=== PATIENT | male | born 1985 | race Asian ===

== ENCOUNTER 2016-10-31 08:06 | Emergency (ER) | payer BC ==
[~2016-10-31] VITALS: Ht 170.2 cm; Wt 75.0 kg
[2016-10-31 08:17] VITALS: TEMP 36.6; Ht 170.2 cm; Wt 75.0 kg
[2016-10-31] MEDS ORDERED: FIBER PO (08:28)
[2016-10-31] MEDS ORDERED: SODIUM CHLORIDE 0.9% 1000ML 1,000 ML IV STA (08:30)
[2016-10-31] MEDS ORDERED: ONDANSETRON INJ 2 MG/ML 2 ML VIAL IV STA (08:42)
[2016-10-31] MEDS ORDERED: KETOROLAC TROMETHAMINE 30 MG/ML VIAL IV STA (08:42)
[2016-10-31] MEDS ORDERED: MoRPHine SULFATE 4 MG/ML 1 ML CARP\\VIAL IV STA (08:42)
[2016-10-31 08:46] LABS: BASO % 0.3 %; BASO ABS # 0.02 K/uL (0-0.2); COMPLETE YES; EOS % 0.8 %; IG% 0.2 %; LYMPH % 43.6 %; LYMPH ABS # 2.68 K/uL (1.2-3.4); MEAN CELL VOLUME 87.4 fL (80-100); MEAN CORPUSCULAR HEMOGLOBIN 29.7 pg (25-34); MEAN PLATELET VOLUME 10.6 fL (7.4-10.4); MONO % 5.7 %; NEUT % 49.4 %; PLATELET COUNT 198 K/uL (130-400); RED BLOOD COUNT 5.15 M/uL (4.7-6.1); WHITE BLOOD COUNT 6.14 K/uL (4.8-10.8)
[2016-10-31 08:54] LABS: BUN/CREATININE RATIO 15.9 (10-20); CALCIUM 9.2 mg/dl (8.5-10.1); CREATININE 0.92 mg/dl (0.60-1.40); POTASSIUM 3.6 mmol/L (3.5-5.1)
--- NOTE | 2016-10-31 09:41 | DIAGNOSTIC IMAGING REPORT ---
CT SCAN OF THE ABDOMEN AND PELVIS WITHOUT IV CONTRAST CLINICAL HISTORY: Left lower quadrant abdominal pain. COMPARISON STUDY: No priors. TECHNIQUE: CT scan of the abdomen and pelvis is performed from the lung bases to the proximal femora. Images are reviewed in the axial, sagittal, and coronal planes. IV contrast was not administered for this examination as per the front clinician. Automated dose control exposure was utilized. CT DOSE: 436.18 mGy.cm FINDINGS: Lung bases: The heart is normal in size and without pericardial effusion. There is mild bibasilar atelectasis. The lung bases otherwise are clear. Liver: The unenhanced liver is normal in size, contour, and attenuation. There are several calcified hepatic granulomas. Scattered subcentimeter hepatic hypodensities likely represent cysts but are too small for definitive characterization. There is no intrahepatic biliary ductal dilatation. Gallbladder: Unremarkable. Spleen: Normal in size and attenuation. Pancreas: Unremarkable. Adrenal glands: Unremarkable. Kidneys: The unenhanced kidneys are normal in size. There is a 4 mm obstructing calculus at the left vesicoureteral junction seen on image #[id number]. This causes mild left-sided hydroureteronephrosis. There is mild left-sided perinephric stranding. An additional punctate nonobstructing calculus is seen in the left lower pole. No right renal calculi are identified and there is no right-sided hydronephrosis. There is no evidence of contour deforming renal mass lesion. Abdominal vasculature: The abdominal aorta is normal in course and caliber. Bowel: The small bowel and colon are normal in course and caliber. The appendix is well-visualized and normal. Peritoneum: There is no intraperitoneal free air or abdominal ascites. Lymphadenopathy: None. Pelvic viscera: The bladder, prostate, and seminal vesicles are normal as imaged. Skeletal structures: No lytic or blastic lesions are seen. IMPRESSION: 1. There is a 4 mm obstructing calculus at the left vesicoureteral junction. This causes mild left hydroureteronephrosis. 2. There is an additional punctate nonobstructing calculus in the left lower pole. Electronically signed by: Bishop Ramos M.D. 10/31/2016 9:40 AM Dictated Date/Time: 10/31/2016 9:32 AM
[2016-10-31 09:51] LABS: URINE APPEARANCE CLEAR (CLEAR); URINE BILIRUBIN NEG (NEG); URINE COLOR YELLOW; URINE NITRITE NEG (NEG); URINE PH 5.5 (4.5-7.5); URINE SPECIFIC GRAVITY 1.016 (1.000-1.030); UROBILINOGEN NEG (NEG)
[2016-10-31] MEDS ORDERED: OXYC1TAB3 PO (10:07)
[2016-10-31 10:14] LABS: MANUAL MICROSCOPIC REQUIRED? NO; REVIEW REQ? NO
[2016-10-31] MEDS: MoRPHine SULFATE 4 MG/ML 1 ML CARP\\VIAL IV PRN ×2 (10:14→11:03)
[2016-10-31 10:15] VITALS: O2SAT 100
[2016-10-31 11:04] VITALS: BP 115/68; PULSE 70
--- NOTE | 2016-10-31 16:42 | EMERGENCY ROOM VISIT NOTE ---
History First contact with patient: 08:25 Chief Complaint: ABDOMINAL PAIN Stated Complaint: LOWER LEFT ABD PAIN Nursing Triage Summary: pt here with llq abd pain that started at 0300 this am. pt states pain is constant. denies any n/v/d or constipation. no hx of abd problems History of Present Illness The patient is a 31 year old male who presents to the Emergency Room with complaints of severe left abdominal and flank pain that started at 3 AM this morning. The patient reports that the pain is mostly constant. He denies any nausea, vomiting, diarrhea or constipation. He also currently denies any urinary symptoms such as inability to urinate, hematuria, dysuria, frequency or urgency. He has had no recent upper respiratory infections, shortness of breath or chest pain. The patient has no alleviating or aggravating factors for his pain, and currently rates his discomfort a 7 out of 10. Review of Systems HEENT: Denies dizziness, visual problems, hearing loss, tinnitus. Denies difficulty swallowing or oral lesions. PULMONARY: Denies cough, shortness of breath, sputum production or hemoptysis. CARDIOVASCULAR: Denies chest pain, palpitations, dyspnea on exertion, orthopnea or peripheral edema. GASTROINTESTINAL: Denies diarrhea, constipation, nausea or vomiting. Otherwise see history of present illness. GENITOURINARY: Denies dysuria, frequency, urgency or nocturia. NEUROLOGIC: Denies history of epilepsy, CVA, TIA or chronic headaches. MUSCULOSKELETAL: Denies history of joint tenderness/swelling. SKIN: Denies rashes or lesions. PSYCHIATRIC: Denies history of depression or mental illness. ENDOCRINE: Denies history of diabetes or thyroid disorders. Past Medical/Surgical History Medical Problems: (1) No significant past medical history Surgical Problems: (1) No history of previous surgery Family History Unremarkable Social History Smoking Status: Never Smoker Alcohol Use: occasionally Marital Status: single Occupation Status: [employer] student Current/Historical Medications Scheduled Fiber Laxative (Fiber Laxative), 1 TAB PO DAILY Scheduled PRN Oxycodone Ir (Roxicodone Ir), 1-2 TAB PO Q4H PRN for Pain Allergies Coded Allergies: No Known Allergies (Unverified , 10/31/16) Physical Exam Vital Signs Date Time Temp Pulse Resp B/P Pulse Ox O2 Delivery O2 Flow Rate FiO2 10/31/16 11:04 70 16 115/68 10/31/16 10:15 82 16 123/79 100 Room Air 3/30/17 08:17 36.6 87 16 119/72 98 Room Air Pain Rating (0-10): 0 Physical Exam CONSTITUTIONAL: Healthy and well nourished. Alert and oriented X 3 with positive affect. Patient appears in moderately severe discomfort from pain. HEENT: Normocephalic, atraumatic. Pupils equal, round and reactive. No scleral icterus or conjunctival injection/pallor. OROPHARYNX: No tonsillar hypertrophy or exudates. NECK: Full active range of motion without discomfort. No nuchal rigidity. RESPIRATORY: Clear to auscultation bilaterally with no wheezing, crackles, rhonchi or stridor. CARDIOVASCULAR: Regular rate and rhythm with no murmurs, rubs or gallops. GASTROINTESTINAL: Bowel sounds present in all quadrants. Patient has minimal left-sided abdominal tenderness to palpation. No rigidity, guarding or rebound. Negative CVA tenderness. Negative McBurney's point tenderness. Negative Yu sign. MUSCULOSKELETAL: Full range of motion of all joints without discomfort. INTEGUMENTARY: No rash or other significant dermatologic conditions noted. HEMATOLOGIC: No ecchymosis or petechiae. NEUROLOGIC: No focal neurologic deficits noted. Medical Decision & Procedures ER Provider Diagnostic Interpretation: Noncontrast CT of the abdomen and pelvis shows a 4 mm left UVJ stone. Radiologist report is as follows: CT SCAN OF THE ABDOMEN AND PELVIS WITHOUT IV CONTRAST CLINICAL HISTORY: Left lower quadrant abdominal pain. COMPARISON STUDY: No priors. TECHNIQUE: CT scan of the abdomen and pelvis is performed from the lung bases to the proximal femora. Images are reviewed in the axial, sagittal, and coronal planes. IV contrast was not administered for this examination as per the front clinician. Automated dose control exposure was utilized. CT DOSE: 436.18 mGy.cm FINDINGS: Lung bases: The heart is normal in size and without pericardial effusion. There is mild bibasilar atelectasis. The lung bases otherwise are clear. Liver: The unenhanced liver is normal in size, contour, and attenuation. There are several calcified hepatic granulomas. Scattered subcentimeter hepatic hypodensities likely represent cysts but are too small for definitive characterization. There is no intrahepatic biliary ductal dilatation. Gallbladder: Unremarkable. Spleen: Normal in size and attenuation. Pancreas: Unremarkable. Adrenal glands: Unremarkable. Kidneys: The unenhanced kidneys are normal in size. There is a 4 mm obstructing calculus at the left vesicoureteral junction seen on image #397. This causes mild left-sided hydroureteronephrosis. There is mild left-sided perinephric stranding. An additional punctate nonobstructing calculus is seen in the left lower pole. No right renal calculi are identified and there is no right-sided hydronephrosis. There is no evidence of contour deforming renal mass lesion. Abdominal vasculature: The abdominal aorta is normal in course and caliber. Bowel: The small bowel and colon are normal in course and caliber. The appendix is well-visualized and normal. Peritoneum: There is no intraperitoneal free air or abdominal ascites. Lymphadenopathy: None. Pelvic viscera: The bladder, prostate, and seminal vesicles are normal as imaged. Skeletal structures: No lytic or blastic lesions are seen. IMPRESSION: 1. There is a 4 mm obstructing calculus at the left vesicoureteral junction. This causes mild left hydroureteronephrosis. 2. There is an additional punctate nonobstructing calculus in the left lower pole. Laboratory Results 10/31/16 08:20 Red Blood Count 5.15, Mean Corpuscular Volume 87.4, Mean Corpuscular Hemoglobin 29.7, Mean Corpuscular Hemoglobin Concent 34.0, Mean Platelet Volume 10.6, Neutrophils (%) (Auto) 49.4, Lymphocytes (%) (Auto) 43.6, Monocytes (%) (Auto) 5.7, Eosinophils (%) (Auto) 0.8, Basophils (%) (Auto) 0.3, Neutrophils # (Auto) 3.03, Lymphocytes # (Auto) 2.68, Monocytes # (Auto) 0.35, Eosinophils # (Auto) 0.05, Basophils # (Auto) 0.02 10/31/16 08:20 Test 10/31/16 08:20 10/31/16 09:30 White Blood Count 6.14 K/uL (4.8-10.8) Red Blood Count 5.15 M/uL (4.7-6.1) Hemoglobin 15.3 g/dL (14.0-18.0) Hematocrit 45.0 % (42-52) Mean Corpuscular Volume 87.4 fL (80-100) Mean Corpuscular Hemoglobin 29.7 pg (25-34) Mean Corpuscular Hemoglobin Concent 34.0 g/dl (32-36) Platelet Count 198 K/uL (130-400) Mean Platelet Volume 10.6 fL (7.4-10.4) Neutrophils (%) (Auto) 49.4 % Lymphocytes (%) (Auto) 43.6 % Monocytes (%) (Auto) 5.7 % Eosinophils (%) (Auto) 0.8 % Basophils (%) (Auto) 0.3 % Neutrophils # (Auto) 3.03 K/uL (1.4-6.5) Lymphocytes # (Auto) 2.68 K/uL (1.2-3.4) Monocytes # (Auto) 0.35 K/uL (0.11-0.59) Eosinophils # (Auto) 0.05 K/uL (0-0.5) Basophils # (Auto) 0.02 K/uL (0-0.2) RDW Standard Deviation 38.7 fL (36.4-46.3) RDW Coefficient of Variation 12.0 % (11.5-14.5) Immature Granulocyte % (Auto) 0.2 % Immature Granulocyte # (Auto) 0.01 K/uL (0.00-0.02) Anion Gap 10.0 mmol/L (3-11) Est Creatinine Clear Calc Drug Dose 107.8 ml/min Estimated GFR () 127.1 Estimated GFR (Non- 109.7 BUN/Creatinine Ratio 15.9 (10-20) Calcium Level 9.2 mg/dl (8.5-10.1) Total Bilirubin 0.7 mg/dl (0.2-1) Direct Bilirubin 0.1 mg/dl (0-0.2) Aspartate Amino Transf (AST/SGOT) 16 U/L (15-37) Alanine Aminotransferase (ALT/SGPT) 18 U/L (12-78) Alkaline Phosphatase 73 U/L (45-117) Total Creatine Kinase 72 U/L (39-308) Total Protein 7.5 gm/dl (6.4-8.2) Albumin 4.4 gm/dl (3.4-5.0) Lipase 102 U/L (73-393) Urine Color YELLOW Urine Appearance CLEAR (CLEAR) Urine pH 5.5 (4.5-7.5) Urine Specific [place] 1.016 (1.000-1.030) Urine Protein NEG (NEG) Urine Glucose (UA) NEG (NEG) Urine Ketones 2+ (NEG) Urine Occult Blood TRACE (NEG) Urine Nitrite NEG (NEG) Urine Bilirubin NEG (NEG) Urine Urobilinogen NEG (NEG) Urine Leukocyte Esterase NEG (NEG) Urine WBC (Auto) 1-5 /hpf (0-5) Urine RBC (Auto) 0-4 /hpf (0-4) Urine Hyaline Casts (Auto) 1-5 /lpf (0-5) Urine Epithelial Cells (Auto) 10-20 /lpf (0-5) Urine Bacteria (Auto) NEG (NEG) The above labs were reviewed. Urinalysis does not show any evidence for infection. The patient has no leukocytosis or other significant electrolyte abnormality. LFTs and lipase are also normal. Medications Administered Medications (Trade) Dose Ordered Sig/Stacy Route Start Time Stop Time Status Last Admin Dose Admin Sodium Chloride (Nss 1000ml) 1,000 ml @ 999 mls/hr Q1H1M STAT IV 10/31/16 08:30 10/31/16 09:30 DC 10/31/16 08:30 999 MLS/HR Morphine Sulfate (MoRPHine SULFATE INJ) 4 mg NOW STAT IV 10/31/16 08:42 10/31/16 08:46 DC 10/31/16 09:06 4 MG Morphine Sulfate (MoRPHine SULFATE INJ) 4 mg Q30M PRN IV 10/31/16 08:45 10/31/16 11:18 DC 10/31/16 11:03 4 MG Ketorolac Tromethamine (Toradol Inj) 30 mg NOW STAT IV 10/31/16 08:42 10/31/16 08:46 DC 10/31/16 09:06 30 MG Ondansetron HCl (Zofran Inj) 4 mg NOW STAT IV 10/31/16 08:42 10/31/16 08:46 DC 10/31/16 09:05 4 MG Procedure 1. IV hydration: The patient received a liter normal saline bolus 2. IV medications: The patient initially was administered morphine 4 mg, Toradol 30 mg and Zofran 4 mg IVP. The patient did require an additional morphine 4 mg IVP after his CT scan, and prior to discharge. ED Course Patient history and physical exam were performed. Nurse's notes were reviewed. Vital signs were reviewed and normal. The patient appears in moderate discomfort from pain. IV access was established, and labs were drawn. The patient was hydrated with normal saline, and received IV medications as discussed in the previous Procedure section. Labs were reviewed without any significant abnormalities. Urinalysis was also normal without signs of infection. Noncontrast CT of the abdomen and pelvis shows a 4 mm left UVJ stone. The patient did require 2 doses of morphine while in the emergency department, but eventually had great pain control, denying any significant pain upon my final evaluation. The patient was provided a urine strainer. He was instructed to remain well- hydrated. He received a prescription for OxyIR as needed for pain. No drinking alcohol or driving while taking OxyIR. He was instructed to return to the emergency department for uncontrollable pain, vomiting or fever. The patient was happy with plan of care, and voiced understanding of all discharge instructions. Medical Decision See previous section. The patient does have CT evidence for a left ureteral calculus. At this point, I do not suspect diverticulitis, bowel obstruction or perforation. Lipitor studies also are not suggestive of pancreatitis, cholecystitis or hepatitis. The patient is afebrile and has no leukocytosis, and he has no abdominal exam findings to suggest a surgical abdomen. Impression Primary Impression: Left ureteral calculus Departure Information Prescriptions Oxycodone Ir (Roxicodone Ir) 5 Mg Tab 1-2 TAB PO Q4H Y for Pain, #15 TAB For Initial Treatment Prov: Bernard Cardona PA 10/31/16 Referrals Mariya Perez M.D. (PCP) Patient Instructions My [facility]
== END 2016-10-31 11:10 | disposition home or self-care (01) ==
LOC: C.EDB 08:09 → C.EDA 11:10
DX: N20.2 Calculus of kidney with calculus of ureter (principal); N13.1 Hydronephrosis with ureteral stricture, not elsewhere classified

== ENCOUNTER → 2017-05-23 | Outpatient (CLI) | payer BC ==
[~2017-05-23] MED LIST: FIBER PO
--- NOTE | 2017-05-23 09:54 | DIAGNOSTIC IMAGING REPORT ---
LEFT KNEE 2 VIEWS CLINICAL HISTORY: Left knee pain. FINDINGS: AP and lateral views of the left knee are obtained. No prior studies are available for comparison at the time of dictation. The skeletal structures are well mineralized. No fracture is seen. The joint spaces are preserved. A calcified fabella is incidentally noted. There is no joint effusion. The overlying soft tissues are normal in appearance. IMPRESSION: Unremarkable radiographic assessment of the left knee. Electronically signed by: Bishop Ramos M.D. 05/23/2017 9:53 AM Dictated Date/Time: 05/23/2017 9:52 AM
== END | disposition home or self-care (01) ==
LOC: C.RAD1850 09:27
PROVIDERS: ATTEND Family Medicine
DX: M25.562 Pain in left knee (principal)